=== PATIENT | female | born 1935 | race Caucasian/White ===

== ENCOUNTER 2020-06-01 09:53 | Outpatient (REF) | payer SELFPAY | END 2020-06-01 09:54 | disposition home or self-care (01) | LOC: HO.HAP 09:53 | PROVIDERS: PCP Internal Medicine; Referring Provider Internal Medicine; Visit Provider Internal Medicine | DX: Z46.1 Encounter for fitting and adjustment of hearing aid (principal) | CPT/HCPCS: V5267 ==

== ENCOUNTER → 2020-07-06 14:08 | Outpatient (BNVA) | payer MEDICARE, SELFPAY | PROVIDERS: PCP Internal Medicine; Referring Provider Internal Medicine; Visit Provider Internal Medicine | DX: I35.0 Nonrheumatic aortic (valve) stenosis (principal); I10 Essential (primary) hypertension; Z95.0 Presence of cardiac pacemaker | CPT/HCPCS: 99212 ==

== ENCOUNTER → 2020-12-30 09:02 | Outpatient (REF) | payer MEDICARE, SELFPAY ==
--- NOTE | 2020-12-30 09:09 | CA_ITS ---
Transthoracic Echocardiogram Patient (Last, First, Middle): Jacquelin Sánchez M Gender: Female Date of : 1935 Age: 85 Procedure Date: 12/30/2020 Procedure Type: Transthoracic Echocardiogram Location: OP Height: 152.4 cm Weight: 61.24 kg BSA: 1.58 m2 Heart Rate: bpm BP: 146 / 58 mmHg Equipment Mechanic Specialist: [facility] MD: Brayan Borrego MD Nurse Esthetician: Farhan Rincon MD Symptoms: I35.0 - Nonrheumatic aortic (valve) stenosis Study Quality: Good ECG Rhythm: Sinus Conclusions: - 1. Normal LV systolic function with grade 1 diastolic dysfunction 2. Moderate aortic stenosis 3. Normal RV systolic pressure 4. No pericardial effusion Findings Left Ventricle Normal left ventricular size, thickness, and systolic function. The visually estimated ejection fraction is between 60-65%. There is paradoxical septal motion consistent with a right ventricular pacemaker. Spectral Doppler is indicative of an impaired relaxation filling pattern. E/E prime ratio is <8, consistent with normal filling pressures. Evidence suggests grade I (mild) diastolic dysfunction. Right Ventricle Normal right ventricular cavity size and systolic function. There is a pacemaker wire seen in the right ventricle. Atria The left atrium is mildly dilated. There is no evidence of interatrial shunt. The right atrium is normal in size. Aortic Valve The aortic valve was not well visualized. There is moderate calcification of the aortic valve. There is moderate aortic valve stenosis. The peak aortic gradient is 37 mmHg.The mean gradient is 21 mmHg. The aortic valve area is 1.25 cm2. There is no aortic valve regurgitation. Mitral Valve There is mild anterior mitral leaflet thickening. There is moderate mitral annular calcification. There is no mitral valve regurgitation. There is no mitral valve stenosis. Pulmonic Valve The pulmonic valve was not well visualized. Tricuspid Valve Likely normal tricuspid valve structure and function. There is trace tricuspid valve regurgitation. The right ventricular systolic pressure is normal. The right ventricular systolic pressure is 31 mmHg. Normal right atrial pressure. There is no evidence of pulmonary hypertension. Great Vessels All visible segments of the aorta are normal in size. The pulmonary artery was not well visualized. Venous The inferior vena cava is normal in size and collapses greater than 50% with inspiration. Pericardium/Pleural There is no evidence of pericardial effusion. Prior Study Comparison Changes noted compared to prior study dated: 12/30/2019. Aortic stenosis is moderate with mean gradient of 21 mm Hg which is increased compared to prior study of 14 mm of mercury Measurements 2D Linear Measurements RVIDd: 2.62 RVIDd Index: 1.66 IVSd: 1.13 0.6-0.9/0.6-1.0 cm LVIDd: 4.22 3.9-5.3/4.2-5.9 cm LVIDd Index: 2.67 2.4-3.2/2.2-3.1 cm/m2 LVIDs: 2.73 2.0-3.6 cm LVPWd: 0.92 0.7-1.1 cm Ao Root: 3.00 2.1-3.5 cm LA Diam: 3.50 2.7-3.8/3.0-4.0 cm LAIDs Index: 2.22 1.5-2.3 cm/m2 LV Mass: 178.07 67-162/88-224 g LV Mass Index: 112.70 43-95/49-115 g/m2 LVOT Diam: 2.00 3.0+(-)1.3 cm 2D Systolic Function EF 4C: 62.50 >55% EF 2C: 67.40 >55% EF BiP: 65.40 >55% Mitral Valve MV Pk E: 0.69 MV PK A: 1.41 MV Decel Time: 239.00 E/A: 0.50 E'Lateral: 5.77 E'Medial: 3.81 E/E' Med: 18.20 E/E' Lat: 12.00 MR Alias Fish: 0.35 MR RAD: 0.50 Aortic Valve AoV Pk Fish: 3.06 AoV Mn Fish: 2.14 AoV VTI: 0.67 AoV Pk Grad: 37.00 Aov Mn Grad: 21.00 DICKSON Cont.VTI: 1.25 LVOT LVOT Pk Fish: 1.31 LVOT Mn Fish: 0.93 LVOT VTI: 0.27 LVOT Pk Grad: 7.00 LVOT Mn Grad: 4.00 LVOT Diam: 2.00 LVOT Area: 3.14 Diastolic Function MV Pk E: 0.69 MV Pk A: 1.41 E/A: 0.50 E'Medial: 3.81 E/E' Med: 18.20 E' Laterial: 5.77 E/E' Lat: 12.00 Tricuspid Valve TR Pk Fish: 2.64 TR Pk Grad: 28.00 RA Press: 3.00 RVSP: 31.00 Great Vessels Aorta Ao Root-2D: 3.00 2.0-3.7 cm Ao Asc: 2.90 2.1-3.4 cm Ao Arch: 2.60 Updated in Other Vendor System with Status of Final Farhan Rincon MD electronically signed on 12/30/2020 2:59:38 PM with status of Final
== END ==
LOC: HO.CARD 09:02
PROVIDERS: Visit Provider Internal Medicine Cardiovascular Disease
DX: I35.0 Nonrheumatic aortic (valve) stenosis (principal); I25.10 Atherosclerotic heart disease of native coronary artery without angina pectoris
CPT/HCPCS: 93306

== ENCOUNTER → 2021-01-20 12:34 | Outpatient (BNVA) | payer MEDICARE, SELFPAY | PROVIDERS: PCP Internal Medicine; Referring Provider Internal Medicine; Visit Provider Internal Medicine | DX: I35.0 Nonrheumatic aortic (valve) stenosis (principal); I10 Essential (primary) hypertension; Z95.0 Presence of cardiac pacemaker | CPT/HCPCS: 99212 ==

== ENCOUNTER 2021-02-03 09:11 | Outpatient (REF) | payer MEDICARE, SELFPAY ==
--- NOTE | 2021-02-03 11:34 | MHC.AU.AHA ---
Adult Audiological Evaluation Date of Visit: 02/03/21 Reason for Appointment: Audiological re-evaluation to monitor the status of Ms. Sánchez's hearing loss. She has a known bilateral sensorineural hearing loss and uses hearing aids binaurally. She notes that her hearing seems to be gradually decreasing. She denies any changes to her medical history. [place] [facility] [place] Mild to moderately severe sensorineural hearing loss bilaterally. Medical History: Medical History: Heart Problems, High Blood Pressure Medical History: Pacemaker Medication List: See list in EMR. Hearing Instrument History- Right Ear: Supervisory Lifeguard: [employer] Model: [place] IQ 2000 JESSICA R Serial Number: [id number] Battery Size: Rechargeable Repair Warranty: 09/10/2021 Loss and Damage Warranty: 09/10/2021 Dispensed By: [facility] Date of Fittin06/18/2018 Hearing Instrument History- Left Ear: Supervisory Lifeguard: [employer] Model: [employer] IQ 2000 JESSICA R Serial Number: [id number] Battery Size: Rechargeable Warranty: 09/10/2021 Loss and Damage Warranty: 09/10/2021 Dispensed By: [facility] Date of Fittin06/18/2018 Otoscopy: Right Ear: Unremarkable Left Ear: Unremarkable Tympanometry: Tympanometry performed due to: To assess integrity of the middle ear system Right Ear: Normal Middle Ear System (Type A) Left Ear: Normal Middle Ear System (Type A) Hearing Evaluation: Transducer(s) Used: Insert Earphones, Bone Conduction Method: Conventional Audiometry Stimuli Used: Pure Tones Right Ear: Description of Hearing: Mild sloping to moderately severe sensorineural hearing loss from 250-8000 Hz. Left Ear: Description of Hearing: Normal hearing at 250 Hz, sloping to a mild to moderately severe sensorineural hearing loss from 500-8000 Hz. Speech Recognition Threshold (SRT): Method Used: Monitored Live Voice Stimuli Used: Spondee Words Right Ear: 55 dBHL Left Ear: 45 dBHL Word Discrimination: Method: Recorded Lists Word Lists Used: NU-6 Right Ear: 88% at 85 dBHL Left Ear: 76% at 85 dBHL Comparison: Compared to most recent evaluation: 5-15 dBHL improvement in low-frequency thresholds bilaterally. Recommendations: Audiological re-evaluation in one year. Hearing aid maintenance performed today. Hearing aid(s) reprogrammed with updated test results. Diagnosis: Primary Diagnosis: H90.3 Bilateral Sensorineural Hearing Loss Services Performed: Comprehensive Audiological Evaluation (CPT 33815) Tympanometry (CPT 23516) Signature: Provider: Yong Neff, CCC-A
== END 2021-02-03 09:12 | disposition home or self-care (01) ==
LOC: HO.SH 09:11
PROVIDERS: Visit Provider Internal Medicine
DX: H90.3 Sensorineural hearing loss, bilateral (principal)
CPT/HCPCS: 92557; 92567

== ENCOUNTER 2021-03-23 12:13 | Outpatient (REF) | payer MEDICARE, SELFPAY ==
--- NOTE | ~2021-03-23 | XR_ITS ---
EXAMINATION: XR HAND, RIGHT CLINICAL INFORMATION: Right hand pain. COMPARISON: None TECHNIQUE: PA, lateral, and oblique views of the right hand. FINDINGS: Mild interphalangeal degenerative joint changes are seen most pronounced in the fifth digit. There is no acute fracture dislocation. The carpal bones are normally aligned. The distal radius and ulna are intact. The soft tissues are unremarkable. XR/XR hand RT min 3V IMPRESSION: Mild interphalangeal degenerative joint changes most consistent with osteoarthritis. No acute abnormality
[2021-03-23 13:01] LABS: Hematocrit 38.6 % (37-47); Hemoglobin 12.9 g/dl (12.0-16.0); Mean Corpuscular HGB Conc 33.4 g/dl (31.0-35.0); Mean Corpuscular Hemoglobin 29.7 pg (27.0-33.0); Mean Corpuscular Volume 88.9 fL (80-98); Mean Platelet Volume 10.6 fL (9.4-12.3); Platelet Count 311 X10*3/uL (160-400); Red Blood Count 4.34 X10*6/uL (4.20-5.50); Red Cell Distribution Width 13.2 % (11.0-16.0); White Blood Count 7.7 X10*3/uL (4.8-10.8)
[2021-03-23 13:41] LABS: Erythrocyte Sedimentation Rate 31 MM/HR (0-20)
[2021-03-23 13:46] LABS: Alanine Aminotransferase 13 U/L (0-31); Albumin Level 4.1 g/dL (3.5-5.0); Alkaline Phosphatase 118 U/L (39-117); Anion Gap 17 (12-20); Aspartate Amino Transferase 15 U/L (5-31); Bilirubin Total 0.5 mg/dL (0.0-1.0); Blood Urea Nitrogen 25 mg/dL (9-16); C Reactive Protein 1.63 mg/dL (< or = 0.50); Calcium 9.4 mg/dL (8.4-10.2); Carbon Dioxide 22 mmol/L (22-29); Chloride 102 mmol/L (96-108); Estimated Glomerular Filt Rate 50; Glucose Random 174 mg/dL (60-115); Potassium 4.3 mmol/L (3.3-5.1); Rheumatoid Factor < 15.0 IU/mL (<15.0); Sodium 137 mmol/L (135-145); Total Protein 7.4 g/dL (6.5-8.0)
== END 2021-03-23 12:14 | disposition home or self-care (01) ==
LOC: HO.XRAY 12:13
PROVIDERS: PCP Internal Medicine; Visit Provider Nurse Practitioner Family
DX: M79.89 Other specified soft tissue disorders (principal)
CPT/HCPCS: 36415; 73130; 80053; 84550; 85027; 85652; 86140; 86431

== ENCOUNTER → 2021-08-02 13:48 | Outpatient (BNVA) | payer MEDICARE, SELFPAY | PROVIDERS: PCP Internal Medicine; Referring Provider Internal Medicine; Visit Provider Internal Medicine | DX: Z45.018 Encounter for adjustment and management of other part of cardiac pacemaker (principal); I35.0 Nonrheumatic aortic (valve) stenosis; I10 Essential (primary) hypertension | CPT/HCPCS: 93005; 99212 ==

== ENCOUNTER → 2021-12-13 07:26 | Outpatient (REF) | payer MEDICARE, SELFPAY ==
--- NOTE | 2021-12-13 07:30 | CA_ITS ---
Transthoracic Echocardiogram Patient (Last, First, Middle): Jacquelin Sánchez M Gender: Female Date of : 1935 Age: 86 Procedure Date: 12/13/2021 Procedure Type: Transthoracic Echocardiogram Location: OP Height: 152.4 cm Weight: 60.78 kg BSA: 1.57 m2 Heart Rate: bpm BP: 142 / 68 mmHg Fourth Grade Teacher: SB Referring MD: Brayan Borrego MD Symptoms: I35.0 - Nonrheumatic aortic (valve) stenosis Study Quality: Fair ECG Rhythm: AV paced rhythm Conclusions: - The left ventricular systolic function is normal. The calculated ejection fraction is 64% by biplane method. - There is moderate aortic valve stenosis. Findings Left Ventricle Normal left ventricular cavity size. The left ventricular systolic function is normal. The calculated ejection fraction is 64% by biplane method. There is no evidence of regional wall motion abnormalities. There is paradoxical septal motion consistent with a right ventricular pacemaker. E/E prime ratio is >15, consistent with elevated filling pressures. Evidence suggests grade I (mild) diastolic dysfunction. LV peak GLS -16.6%. Right Ventricle Normal right ventricular cavity size and systolic function. Atria Both atria are normal in size. Aortic Valve There is moderate calcification of the aortic valve. There is moderate aortic valve stenosis. The peak aortic velocity is 2.73 m/s with a calculated peak gradient of 32 mmHg. The mean gradient is 16 mmHg. The aortic valve area is 0.97 cm2. There is trace (trivial) aortic valve regurgitation. Dimensionless index 0.37. Stroke volume index 42 cc/m2. Mitral Valve There is mild mitral annular calcification. There is mild mitral valve regurgitation. There is no mitral valve stenosis. Pulmonic Valve The pulmonic valve was not well visualized. Tricuspid Valve There is mild tricuspid valve regurgitation. The pulmonary artery systolic pressure is normal. Great Vessels The asc aorta is normal in size. Venous The inferior vena cava is normal in size and collapses greater than 50% with inspiration. Pericardium/Pleural There is no evidence of pericardial effusion. Prior Study Comparison No significant change compared to prior study dated: 12/30/2020. Measurements 2D Linear Measurements IVSd: 0.84 0.6-0.9/0.6-1.0 cm LVIDd: 4.85 3.9-5.3/4.2-5.9 cm LVIDd Index: 3.09 2.4-3.2/2.2-3.1 cm/m2 LVIDs: 2.91 2.0-3.6 cm LVPWd: 0.79 0.7-1.1 cm LA Diam: 3.60 2.7-3.8/3.0-4.0 cm LAIDs Index: 2.29 1.5-2.3 cm/m2 LV Mass: 163.55 67-162/88-224 g LV Mass Index: 104.17 43-95/49-115 g/m2 LVOT Diam: 2.00 3.0+(-)1.3 cm 2D Systolic Function EF 4C: 59.20 >55% EF 2C: 67.60 >55% EF BiP: 63.60 >55% Mitral Valve MV VTI: 0.32 MV Pk Fish: 1.34 MV Mn Fish: 0.82 MV Pk Grad: 7.00 MV Mn Grad: 3.00 MV Pk E: 0.75 MV PK A: 1.21 MV Decel Time: 370.00 E/A: 0.60 E'Lateral: 4.68 E'Medial: 3.81 E/E' Med: 19.60 E/E' Lat: 16.00 PHT: 108.00 MVA PHT: 2.04 MVA Continuity: 2.07 Decel Treasure: 2.02 Aortic Valve AoV Pk Fish: 2.73 AoV Mn Fish: 1.90 AoV VTI: 0.63 AoV Pk Grad: 32.00 Aov Mn Grad: 16.40 DICKSON Cont.VTI: 0.97 LVOT LVOT Pk Fish: 1.06 LVOT Mn Fish: 0.74 LVOT VTI: 0.21 LVOT Pk Grad: 4.00 LVOT Mn Grad: 2.00 LVOT Diam: 2.00 LVOT Area: 3.14 Diastolic Function MV Pk E: 0.75 MV Pk A: 1.21 E/A: 0.60 E'Medial: 3.81 E/E' Med: 19.60 E' Laterial: 4.68 E/E' Lat: 16.00 Right Ventricle TAPSE (mm): 17.80 TVS' Fish: 8.50 Tricuspid Valve TR Pk Fish: 2.45 TR Pk Grad: 26.00 RA Press: 3.00 RVSP: 29.00 Great Vessels Aorta Sinus of Valsalva: 2.76 2.0-3.5 cm Ao Asc: 3.00 2.1-3.4 cm Pulmonary Valve PV Pk Fish: 0.85 Peak PV Grad: 3.00 Updated in Other Vendor System with Status of Final Brayan Borrego MD electronically signed on 12/13/2021 12:34:22 PM with status of Final
== END ==
LOC: HO.CARD 07:26
PROVIDERS: PCP Internal Medicine; Visit Provider Internal Medicine
DX: I35.0 Nonrheumatic aortic (valve) stenosis (principal)
CPT/HCPCS: 93306; 93356

== ENCOUNTER 2021-12-22 13:24 | Outpatient (REF) | payer MEDICARE, OTHER, SELFPAY | END 2021-12-22 13:25 | disposition home or self-care (01) | LOC: HO.HAP 13:24 | PROVIDERS: Visit Provider Internal Medicine | DX: Z46.1 Encounter for fitting and adjustment of hearing aid (principal); H90.3 Sensorineural hearing loss, bilateral | CPT/HCPCS: V5267 ==

== ENCOUNTER → 2022-02-01 12:59 | Outpatient (BNVA) | payer MEDICARE, SELFPAY | PROVIDERS: PCP Internal Medicine; Referring Provider Internal Medicine; Visit Provider Internal Medicine | DX: I35.0 Nonrheumatic aortic (valve) stenosis (principal); I10 Essential (primary) hypertension; Z79.899 Other long term (current) drug therapy; Z45.018 Encounter for adjustment and management of other part of cardiac pacemaker | CPT/HCPCS: 93280; 99212 ==

== ENCOUNTER 2022-02-26 16:22 | Emergency (ER) | payer MEDICARE, SELFPAY ==
--- NOTE | ~2022-02-26 | CT_ITS ---
EXAMINATION: CT ANGIOGRAM OF THE CHEST WITH AND WITHOUT CONTRAST (CT PULMONARY ANGIOGRAM FOR PE) CLINICAL INFORMATION: Reason for Exam cough, dyspnea, hemoptysis COMPARISON: None TECHNIQUE: Prior to contrast administration, noncontrast localization images were obtained. Subsequently, multidetector volumetric imaging was performed from the thoracic inlet to below the diaphragms following the administration of 95 mL Omnipaque 350 intravenous contrast. No contrast reaction reported Sagittal, coronal, and MIP oblique sagittal reformatted images were obtained on the CT workstation, uploaded to PACS, and reviewed. This CT examination was performed using dose optimization techniques as appropriate, variously including the following: *Automated exposure control *Adjustment of mA and/or kV according to patient size (this includes techniques or standardized protocols for targeted exams where dose is matched to indication/reason for exam; i.e. extremities or head) *Use of iterative reconstruction technique Total exam dose-length product 226 mGy-cm FINDINGS: QUALITY OF STUDY/CONTRAST BOLUS: Satisfactory. PULMONARY ARTERIES: No central or segmental pulmonary emboli. THORACIC AORTA: No aneurysm or dissection. LUNG: Moderate-severe emphysema. Pleural scarring along the lateral right upper lobe. Diffuse moderate bronchial thickening without bronchiectasis. PLEURA: No pleural effusion or pneumothorax. MEDIASTINUM: There is bulky confluent adenopathy throughout the mediastinum. Mildly enlarged right hilar lymph nodes. Mildly enlarged right supraclavicular lymph nodes measure up to 1.1 cm. Mild cardiomegaly. No pericardial effusion. No evidence of septal bowing or right heart strain. CHEST WALL/AXILLA: No axillary or internal mammary lymphadenopathy. OSSEOUS STRUCTURES: No acute or suspicious osseous abnormality. UPPER ABDOMEN: Small sliding-type hiatal hernia. No upper abdominal lymphadenopathy. CT/CT angio chest PE protocol IMPRESSION: * No pulmonary embolism. * Bulky confluent mediastinal lymphadenopathy with pathologically enlarged right hilar and right supraclavicular lymph nodes. * Moderate to severe emphysema. VTE: NEGATIVE
--- NOTE | ~2022-02-26 | XR_ITS ---
EXAMINATION: XR CHEST CLINICAL INFORMATION: Dyspnea COMPARISON: Chest x-ray 01/21/2016 TECHNIQUE: Frontal view of the chest was obtained. FINDINGS: Curvilinear increased reticular markings in the right upper lobe, new since prior with mild right apical pleural thickening. Lungs otherwise appear clear. No pleural effusion or pneumothorax visualized. Normal heart size. Prominence of the dara and right paratracheal stripe. No evidence pulmonary edema. Sided dual-chamber pacer lead tip over the right atrium and right ventricle. No acute osseous injury. 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 XR/XR chest 1V IMPRESSION: 1. New fullness in the right paratracheal mediastinum and dara, concerning for lymphadenopathy. Recommend chest CT preferably with contrast for assessment. 2. New increased reticular markings in the right upper lobe and adjacent mild pleural thickening, nonspecific. Findings could represent interval scarring since 2016 though inflammatory/infectious etiology or conceivably lymphangitic spread of tumor could give a similar appearance. Findings can also be further assessed by CT.
[2022-02-26 16:38] VITALS: BP 122/62; PULSE 96; RESP 24; TEMP 36.9; O2SAT 95; BMI 24.6
--- NOTE | 2022-02-26 16:41 | ECG_ITS ---
Test Reason : DYSPNEA Blood Pressure : / mmHG Vent. Rate : 085 BPM Atrial Rate : 085 BPM P-R Int : 152 ms QRS Dur : 156 ms QT Int : 452 ms P-R-T Axes : 061 -78 079 degrees QTc Int : 537 ms Atrial-sensed ventricular-paced rhythm Abnormal ECG When compared with ECG of 01-MAY-2017 14:27, No significant change was found Referred By: Generic ED Physician Electronically Signed By:KRISTOFER LUNA
[2022-02-26 17:15] LABS: MANUAL DIFF FLAG NO
[2022-02-26 17:16] LABS: Basophils Percent Auto 0.5 % (0-2); Eosinophils Absolute Auto 0.1 X10*3/uL (0.0-0.4); Eosinophils Percent Auto 1.6 % (0-4); Hematocrit 35.5 % (37.0-47.0); Hemoglobin 12.4 g/dl (12.0-16.0); Imm Gran Abs Auto 0.03 X10*3/uL (0.00-0.03); Imm Gran Pct Auto 0.4 % (0.0-0.4); Lymphocytes Absolute Auto 2.4 X10*3/uL (1.2-4.9); Lymphocytes Percent Auto 29.7 % (20-40); Mean Corpuscular HGB Conc 34.9 g/dl (31.0-35.0); Mean Corpuscular Volume 85.7 fL (80.0-98.0); Mean Platelet Volume 9.3 fL (9.4-12.3); Monocytes Percent Auto 12.4 % (2-11); Neutrophils Absolute Auto 4.5 x10*3/uL (2.0-8.3); Neutrophils Percent Auto 55.4 % (45-73); Platelet Count 335 X10*3/uL (160-400); Red Blood Count 4.14 X10*6/uL (4.20-5.50); Red Cell Distribution Width 12.5 % (11.0-16.0); White Blood Count 8.1 X10*3/uL (4.8-10.8)
[2022-02-26 17:32] LABS: COVID-19 Test Negative (Negative)
[2022-02-26 17:43] LABS: Anion Gap 17 (12-20); Blood Urea Nitrogen 22 mg/dL (9-16); Calcium 9.4 mg/dL (8.4-10.2); Carbon Dioxide 26 mmol/L (22-29); Chloride 96 mmol/L (96-108); Creatinine Clr Calc Pharmacy 41.6; Estimated Glomerular Filt Rate > 60; Glucose Random 127 mg/dL (60-115); Potassium 3.5 mmol/L (3.3-5.1); Sodium 135 mmol/L (135-145)
[2022-02-26 17:54] LABS: B Type Natriuretic Peptide 99 pg/mL (<100)
--- NOTE | 2022-02-26 21:06 | ED_ITS ---
HPI - SOB/Dyspnea General Chief Complaint: Dyspnea Stated Complaint: Difficulty breathing/Coughing up blood Time Seen by Provider: 02/26/22 21:06 Source: patient Mode of arrival: ambulatory Limitations: no limitations History of Present Illness HPI Narrative: 86 yo female with hx of COPD, former smoker, PPM, HTN here with c/o cough and hemoptysis over the past 2 to 3 nights and hard time breathing particularly at night, she also notes 7lb weight loss since December. MD elicited complaint: shortness of breath and cough Pertinent past history: COPD Onset (ago): day(s) (2) Timing: intermittent Severity: moderate Exacerbating factors: coughing Relieving factors: rest and upright position Associated symptoms: cough, sputum production, hemoptysis, chest congestion and other (weight loss) Treatment prior to arrival: none Related Data Home Medications Medication Instructions Recorded Confirmed albuterol sulfate 90 mcg/actuation inhalation 06/12/20 02/01/22 aerosol inhaler aspirin 81 mg tablet,delayed 81 mg PO DAILY 07/06/20 02/01/22 release Previous Rx's Medication Instructions Recorded hydrochlorothiazide 25 mg tablet 25 mg PO DAILY #90 tabs 03/23/21 omeprazole 20 mg capsule,delayed 20 mg PO DAILY #90 caps 03/23/21 release amlodipine 2.5 mg tablet 2.5 mg PO DAILY #90 tabs 02/09/22 cefuroxime axetil 500 mg tablet 500 mg PO BID 7 days #14 tabs 02/26/22 Allergies Allergy/AdvReac Type Severity Reaction Status Date / Time No Known Allergies Allergy Verified 02/26/22 16:38 Review of Systems Review of Systems: Constitutional : No Fever, No Chills, pos weight loss ENT/Mouth : No sore throat, No Rhinorrhea, No Swallowing Difficulty Eyes: No Eye Pain, No Swelling, No Redness Cardiovascular : No Chest Pain, positive SOB, No Orthopnea, no Edema Respiratory : pos Cough, pos Sputum, No Wheezing, positive dyspnea Gastrointestinal : No Nausea, No Vomiting, No Diarrhea, No abdominal Pain, No Hematochezia, No Melena Genitourinary : No Dysuria, No Urinary Frequency, No Hematuria Musculoskeletal : No joint pain, No Myalgias Skin : No Skin Lesions, No rash Neuro : No Weakness, No Numbness, No Dizziness, No Headache Psych : No Anxiety/Panic, No Depression Heme/Lymph: No Bruising, No Lymphadenopathy Endocrine : No Polyuria, No Polydipsia All other systems reviewed and are negative [facility] Past Medical History Attestation statement: The following information was validated with the patient. Medical History Essential hypertension Hypertension Non-rheumatic aortic stenosis Normally functioning cardiac pacemaker present Swelling of finger of right hand Surgical History H/O rectal polypectomy H/O varicose vein ligation History of appendectomy History of bilateral salpingo-oophorectomy History of bladder surgery History of cataract surgery History of cholecystectomy History of hysterectomy History of pacemaker History of tonsillectomy Family History Family History Father No problems noted. Mother No problems noted. Family/Other CAD (coronary artery disease) Family/Other Substance use disorder Social History Social History Housing: House Alcohol intake: current Alcohol intake frequency: holidays/special occasions only Patient Tobacco Use Status: Former Tobacco user e-Cigarette/Vaping Use: Never Used Second Hand Smoke Exposure: No Advance Directives: No Advance Directives Information Provided: No service: No Current occupational status: retired Cognitive needs: Yes (walker) Hearing needs: Yes (hearing aide) Vision needs: Yes (reading glasses) Physical Exam Vital Signs: Vital Signs: Last Vital Signs Temp 98.4 F 02/26/22 16:38 Pulse 96 02/26/22 16:38 Resp 24 H 02/26/22 16:38 BP 122/62 02/26/22 16:38 Pulse Ox 95 02/26/22 16:38 O2 Del Method 02/26/22 16:38 BMI result Body Mass Index 24.6 Appearance: Alert. Oriented X3. No acute distress. Eyes: Pupils equal, round and reactive to light. ENT: Pharynx normal. Neck: Normal inspection. Neck supple. CVS: Normal heart rate and rhythm. Pulses normal. Respiratory: No respiratory distress. Breath sounds diminished, coarse cough noted. Abdomen: Soft and nontender. Skin: Skin warm and dry. Normal skin color. Normal skin turgor. Extremities: No lower extremity edema. No calf ttp Neuro: Oriented X 3. No motor deficit. No sensory deficit. Course Course Course Narrative: CBC stable, no hypoxia, very faint pink tinged sputum - no tevin brb or clots noted cannot tolerate doxycylcine will start on ceftin will refer to PCP send home on precautions hold aspirin discussed malignancy concerns MDM - SOB/Dyspnea MDM Narrative Medical decision making narrative: 86 yo female with hx of COPD, former smoker, PPM, HTN here with c/o cough and scant hemoptysis only on baby aspirin at home - she will need labs, CTA for PE/mass/infection given weight loss concern for malignancy is high. She is not in respiratory distress at this time. Dispo per results and findings. Lab Data Result diagrams: 02/26/22 17:09 02/26/22 17:09 Labs: Lab Results 02/26/22 02/26/22 02/26/22 Range/Units 17:09 17:09 17:09 WBC 8.1 (4.8-10.8) X10*3/uL RBC 4.14 L (4.20-5.50) X10*6/uL Hgb 12.4 (12.0-16.0) g/dl Hct 35.5 L (37.0-47.0) % MCV 85.7 (80.0-98.0) fL MCH 30.0 (27.0-33.0) pg MCHC 34.9 (31.0-35.0) g/dl RDW 12.5 (11.0-16.0) % Plt Count 335 (160-400) X10*3/uL MPV 9.3 L (9.4-12.3) fL Immature Gran % (Auto) 0.4 (0.0-0.4) % Neut % (Auto) 55.4 (45-73) % Lymph % (Auto) 29.7 (20-40) % [place] % (Auto) 12.4 H (2-11) % Eos % (Auto) 1.6 (0-4) % Baso % (Auto) 0.5 (0-2) % Lymph # (Auto) 2.4 (1.2-4.9) X10*3/uL [place] # (Auto) 1.0 (0.1-1.2) X10*3/uL Eos # (Auto) 0.1 (0.0-0.4) X10*3/uL Baso # (Auto) 0.0 (0.0-0.2) X10*3/uL Abs Immat Gran (auto) 0.03 (0.00-0.03) X10*3/uL Absolute Neuts (auto) 4.5 (2.0-8.3) x10*3/uL Absolute Nucleated RBC 0.000 (0.0-0.012) X10*3/uL Nucleated RBC % (auto) 0.0 (0.0-0.2) /100WBC PT (10.0-13.1) SEC INR (0.9-1.1) Sodium 135 (135-145) mmol/L Potassium 3.5 (3.3-5.1) mmol/L Chloride 96 (96-108) mmol/L Carbon Dioxide 26 (22-29) mmol/L Anion Gap 17 (12-20) BUN 22 H (9-16) mg/dL Creatinine 0.77 (0.5-1.4) mg/dL Estim Creat Clear Calc 41.6 Estimated GFR > 60 Random Glucose 127 H (60-115) mg/dL Lactic Acid (0.5-2.0) mmol/L Calcium 9.4 (8.4-10.2) mg/dL Troponin I High Sens 5.0 (<3.5-17.0) ng/L B-Natriuretic Peptide 99 (<100) pg/mL COVID-19 (CODI) (Negative) COVID-19 Clin Com 02/26/22 02/26/22 02/26/22 Range/Units 17:09 21:06 21:30 WBC (4.8-10.8) X10*3/uL RBC (4.20-5.50) X10*6/uL Hgb (12.0-16.0) g/dl Hct (37.0-47.0) % MCV (80.0-98.0) fL MCH (27.0-33.0) pg MCHC (31.0-35.0) g/dl RDW (11.0-16.0) % Plt Count (160-400) X10*3/uL MPV (9.4-12.3) fL Immature Gran % (Auto) (0.0-0.4) % Neut % (Auto) (45-73) % Lymph % (Auto) (20-40) % [place] % (Auto) (2-11) % Eos % (Auto) (0-4) % Baso % (Auto) (0-2) % Lymph # (Auto) (1.2-4.9) X10*3/uL [place] # (Auto) (0.1-1.2) X10*3/uL Eos # (Auto) (0.0-0.4) X10*3/uL Baso # (Auto) (0.0-0.2) X10*3/uL Abs Immat Gran (auto) (0.00-0.03) X10*3/uL Absolute Neuts (auto) (2.0-8.3) x10*3/uL Absolute Nucleated RBC (0.0-0.012) X10*3/uL Nucleated RBC % (auto) (0.0-0.2) /100WBC PT 11.9 (10.0-13.1) SEC INR 1.0 (0.9-1.1) Sodium (135-145) mmol/L Potassium (3.3-5.1) mmol/L Chloride (96-108) mmol/L Carbon Dioxide (22-29) mmol/L Anion Gap (12-20) BUN (9-16) mg/dL Creatinine (0.5-1.4) mg/dL Estim Creat Clear Calc Estimated GFR Random Glucose (60-115) mg/dL Lactic Acid 1.0 (0.5-2.0) mmol/L Calcium (8.4-10.2) mg/dL Troponin I High Sens (<3.5-17.0) ng/L B-Natriuretic Peptide (<100) pg/mL COVID-19 (CODI) Negative (Negative) COVID-19 Clin Com See Note ECG Data Attestation: I personally reviewed and interpreted this ECG as follows: ECG interpretation date: 02/26/22 ECG interpretation time: 21:36 Interpretation: Rate: 85 Rhythm: paced [place]: left wide complex - paced ST T wave : no MIGUEL elevation, tall T waves qTC: prolonged prior studies: no acute ischemia The study has been interpreted contemporaneously by me. Discharge Plan Discharge Clinical Impression: Bronchitis, Mediastinal adenopathy, Cough with hemoptysis Patient Disposition: Home, Self-Care Instructions: Lymphadenopathy (ED), Acute Bronchitis (ED), Hemoptysis (ED) Additional Instructions: return to ED for any worsening symptoms or concerns HOLD aspirin THIS NEEDS TO BE FOLLOWED UP CLOSELY WITH DOCTOR TO MAKE SURE THIS ISN'T MALIGNANCY (CANCER) IF SYMPTOMS WORSEN YOU HAVE WORSENING BLEEDING OR CLOTS PLEASE RETURN TO THE EMERGENCY DEPARTMENT take over the counter probiotic while on antibiotic FINDINGS: QUALITY OF STUDY/CONTRAST BOLUS: Satisfactory. PULMONARY ARTERIES: No central or segmental pulmonary emboli.? THORACIC AORTA: No aneurysm or dissection. LUNG: Moderate-severe emphysema. Pleural scarring along the lateral right upper lobe. Diffuse moderate bronchial thickening without bronchiectasis. PLEURA: No pleural effusion or pneumothorax. MEDIASTINUM: There is bulky confluent adenopathy throughout the mediastinum. Mildly enlarged right hilar lymph nodes. Mildly enlarged right supraclavicular lymph nodes measure up to 1.1 cm. Mild cardiomegaly. No pericardial effusion. No evidence of septal bowing or right heart strain. CHEST WALL/AXILLA: No axillary or internal mammary lymphadenopathy. OSSEOUS STRUCTURES: No acute or suspicious osseous abnormality.? UPPER ABDOMEN: Small sliding-type hiatal hernia.? No upper abdominal lymphadenopathy. CT/CT angio chest PE protocol IMPRESSION: *? No pulmonary embolism. *? Bulky confluent mediastinal lymphadenopathy with pathologically enlarged right hilar and right supraclavicular lymph nodes. *? Moderate to severe emphysema. ? Prescriptions: New cefuroxime axetil 500 mg tablet 500 mg PO BID 7 Days Qty: 14 0RF No Action amlodipine 2.5 mg tablet 2.5 mg PO DAILY Qty: 90 8RF hydrochlorothiazide 25 mg tablet 25 mg PO DAILY Qty: 90 8RF omeprazole 20 mg capsule,delayed release(DR/EC) 20 mg PO DAILY Qty: 90 8RF albuterol sulfate 90 mcg/actuation HFA aerosol inhaler inhalation aspirin 81 mg tablet,delayed release (DR/EC) 81 mg PO DAILY Referrals: Tyson Cruz MD [Primary Care Provider] - 2 days (Monday)
[2022-02-26 21:55] LABS: Prothrombin Time 11.9 SEC (10.0-13.1)
[2022-02-26] MEDS: iohexoL 350 MG/ML 100 ML INFUS..BTL IV (22:17)
[2022-02-27 00:29] VITALS: BP 132/73; PULSE 87; RESP 14; O2SAT 97
== END 2022-02-27 00:39 | disposition home or self-care (01) ==
PROVIDERS: Emergency Provider Emergency Medicine; PCP Internal Medicine
DX: J40 Bronchitis, not specified as acute or chronic (principal); R59.0 Localized enlarged lymph nodes; R05.9 Cough, unspecified; R04.2 Hemoptysis; R06.02 Shortness of breath; Z20.822 Contact with and (suspected) exposure to COVID-19; I10 Essential (primary) hypertension; Z87.891 Personal history of nicotine dependence
CPT/HCPCS: 36415; 71045; 71275; 80048; 83605; 83880; 84484; 85025; 85610; 87040; 87635; 93005; 99284; Q9967